=== PATIENT | female | born 2000 | race Hispanic/Latino ===

== ENCOUNTER → 2024-04-02 10:20 | Outpatient (CLI) | payer OTHER, SELFPAY ==
--- NOTE | 2024-04-02 10:25 | DI.US.S_ITS ---
PROCEDURE: US OB <= 14 WEEKS FETUS INDICATIONS: SIZE AND DATES OUTSIDE/PRIOR DATING DATA: Last menstrual period (LMP): 02/07/2024. LMP-based estimated date of delivery (JACQUE): 11/13/2024. First dating scan (date and location): 04/02/2024. Estimated date of delivery (JACQUE) from first dating scan: 11/23/2024. TECHNIQUE: Real-time scanning was performed of the fetus and maternal pelvic organs, with image documentation. Endovaginal scanning was also performed to better visualize the fetus and maternal ovaries. COMPARISON: None. FINDINGS: Embryo: [place]-rump length measures 0.6 cm, consistent with six weeks and 3 days. Normal yolk sac is seen. Heart rate: 120 beats per minute Maternal organs: Ovaries are within normal limits. IMPRESSION: Single live intrauterine consistent with 6 weeks and 3 days. We strive to produce accurate, complete, and clear reports of imaging services. To assist us in improving patient care, this report was composed using standard report templates and voice recognition software. Therefore, it may contain abnormal punctuation, insertions and/or omissions. Occasional wrong-word or sound-alike substitutions may occur. Though we review the report and make efforts to correct it, we do recommend that the report be read carefully in proper context to recognize any text inaccuracies Dictated by: Uri Paz M.D. on 04/02/2024 at 15:59 Approved by: Uri Paz M.D. on 04/02/2024 at 16:02
== END ==
PROVIDERS: Referring Provider Nurse Practitioner Obstetrics & Gynecology; Visit Provider Nurse Practitioner Obstetrics & Gynecology
DX: O36.80X0 Pregnancy with inconclusive fetal viability, not applicable or unspecified (principal); Z3A.01 Less than 8 weeks gestation of pregnancy
CPT/HCPCS: 76801

== ENCOUNTER → 2024-07-09 12:46 | Outpatient (CLI) | payer OTHER, SELFPAY ==
--- NOTE | 2024-07-09 12:47 | DI.US.S_ITS ---
PROCEDURE: US OB >= 14 WEEKS FETUS INDICATIONS: 20WK ANATOMY SCAN OUTSIDE/PRIOR DATING DATA: Last menstrual period (LMP): 02/07/2024 LMP-based estimated date of delivery (JACQUE): 11/13/2024. First dating scan (date and location): 04/02/2024. Estimated date of delivery (JACQUE) from first dating scan: 11/23/2024. TECHNIQUE: Real-time scanning was performed of the fetus, with image documentation and biometric measurements. COMPARISON: [facility], OB <= 14 WEEKS FETUS, 04/02/2024, 10:38. FINDINGS: General: A single living intrauterine gestation is present. Presentation: Variable. Placenta: Placental position is posterior , without previa. Amniotic fluid index: 15.1 cm, normal range is 5-24 cm. Single deepest vertical pocket is 4.6 cm. heart rate: 139 beats per minute. Maternal cervical canal: 5.1 cm cm long. Normal lower limit is 2.5 cm. biometrics: Biparietal diameter: 4.7 cm, 20 weeks and 1 day Head circumference: 17.3 cm 19 weeks and 6 days Abdominal circumference: 15 cm, 20 weeks and 2 days Femur length: 3.4 cm, 20 weeks and 5 days Clinically estimated gestational age: 20 weeks and 3 days Composite gestational age from present scan: 20 weeks and 2 days Estimated weight and percentile: 350 g, 42nd percent Anatomic survey: Neuro: Ventricles are non-dilated at less than 10 mm. Cisterna magna is normal at 3-11 mm. Cerebellum is normal in size and morphology. Nuchal skin fold: Normal at less than 6 mm between 14-21 weeks gestational age. Face: Nose and lips, facial profile are normal. Spine: No evidence for spina bifida. Heart: 4-chambered heart is present, with normal ventricular outflow tracts. Diaphragm: Diaphragm is intact. Stomach: Left-sided stomach is present. Kidneys: No hydronephrosis. Normal is less than 5 mm in 2nd trimester, less than 7 mm in 3rd trimester. Cord: 3-vessel cord has orthotopic insertion. Bladder: Normal in size. Extremities: All 4 extremities identified. IMPRESSION: Living intrauterine gestation at 20 weeks and 3 days. EFW at the 42 percentile. No significant abnormalities on routine anatomic survey. Normal REJI. Dictated by: Adán Lucio M.D. on 07/09/2024 at 16:33 Approved by: Adán Lucio M.D. on 07/09/2024 at 16:37
== END ==
PROVIDERS: Referring Provider Nurse Practitioner Obstetrics & Gynecology; Visit Provider Nurse Practitioner Obstetrics & Gynecology
DX: Z34.92 Encounter for supervision of normal pregnancy, unspecified, second trimester (principal); Z3A.20 20 weeks gestation of pregnancy
CPT/HCPCS: 76811

== ENCOUNTER → 2024-09-12 10:31 | Outpatient (CLI) | payer OTHER, SELFPAY ==
[2024-09-12 11:28] LABS: Glucose Fasting 86 mg/dL (70-100)
[2024-09-12 12:44] LABS: Glucose 1 Hour 114 mg/dL (70-170)
[2024-09-12 13:59] LABS: Glucose Tol Interpretation INTERPRETATION
[2024-09-12 14:23] LABS: Glucose 2 Hour 116 mg/dL (70-140)
[2024-09-12 15:17] LABS: Glucose 3 Hour 121 mg/dL (70-115)
== END ==
LOC: LAB 10:32
PROVIDERS: Referring Provider Advanced Practice Midwife; Visit Provider Advanced Practice Midwife
DX: O99.810 Abnormal glucose complicating pregnancy (principal)
CPT/HCPCS: 36415; 82951; 82952

== ENCOUNTER → 2024-10-29 08:11 | Outpatient (ROUT) | payer OTHER, SELFPAY ==
[2024-10-30 09:31] LABS: Strep Grp B PCR NEG for Grp B Strep
== END ==
PROVIDERS: Visit Provider Advanced Practice Midwife
DX: Z34.90 Encounter for supervision of normal pregnancy, unspecified, unspecified trimester (principal); Z36.85 Encounter for antenatal screening for Streptococcus B; Z3A.36 36 weeks gestation of pregnancy
CPT/HCPCS: 87653